=== PATIENT | male | born 1990 | race Caucasian/White ===

== ENCOUNTER 2017-11-08 15:23 | Emergency (ER) | payer SELFPAY ==
--- NOTE | 2017-11-08 15:42 | PDOC ---
Rapid Medical Evaluation Time Seen by Provider: 11/08/17 15:33 Medical Evaluation: 11/08/17 15:40 I have performed a brief in-person evaluation of this patient. 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 Asymptomatic at this time Pertinent physical exam findings:tick embedded to posterior aspect of proximal R leg I have ordered the following:nothing The patient will proceed to the ED for further evaluation.
[2017-11-08 15:47] VITALS: BP 138/86; PULSE 86; TEMP 97.6; BMI 28.2
--- NOTE | 2017-11-08 16:07 | PDOC ---
History of Present Illness - General Chief Complaint: Bite Stated Complaint: TICK ON LEG Time Seen by Provider: 11/08/17 15:33 History Source: Patient Exam Limitations: No Limitations - History of Present Illness Initial Comments: 11/08/17 16:07 27 yr male with no PMHX. presents with tic to the back of his leg noticed today. Pt went hiking yesterday. Severity: Yes: mild Respiratory Risk Factors: reports: insect bite Past History - Past Medical History Allergies/Adverse Reactions: Allergies Allergy/AdvReac Type Severity Reaction Status Date / Time diphenhydramine AdvReac Verified 11/08/17 15:43 [From Benadryl] Home Medications: Ambulatory Orders NK [No Known Home Medication] 11/08/17 COPD: No DVT: No - Immunization History Immunization Up to Date: Yes - Suicide/Smoking/Psychosocial Hx Smoking History: Never smoked Have you smoked in the past 12 months: No Information on smoking cessation initiated: No Hx Alcohol Use: No Drug/Substance Use Hx: No Substance Use Type: None *Physical Exam - Vital Signs Last Vital Signs Temp Pulse Resp BP Pulse Ox 97.6 F 86 16 138/86 99 11/08/17 15:44 11/08/17 15:44 11/08/17 15:44 11/08/17 15:44 11/08/17 15:44 - Physical Exam General Appearance: Yes: Nourished, Appropriately Dressed HEENT: positive: EOMI, RODOLFO Extremity: positive: Normal Capillary Refill, Normal Inspection, Normal Range of Motion Integumentary: positive: Normal Color, Dry, Warm, Other (tick to right posterior calf) Neurologic: positive: Fully Oriented, Alert, Normal Mood/Affect, Normal Response , Motor Strength 5/5 Procedures - Additional Procedures Progress: 11/08/17 16:11 tick removed with forcep tweezers no complications Medical Decision Making - Medical Decision Making 11/08/17 16:18 cc: tick to back of leg will remove tick in ED tick was still alive when removed, less than 24hrs pt does not meet criteria to have prophylactic antibiotics. *DC/Admit/Observation/Transfer Diagnosis at time of Disposition: Tick bite Qualifiers: Encounter type: initial encounter Qualified Code(s): W57.XXXA - Bitten or stung by nonvenomous insect and other nonvenomous arthropods, initial encounter - Discharge Dispostion Disposition: HOME Condition at time of disposition: Good - Referrals - Patient Instructions Additional Instructions: keep areas clean and dry make sure you wear long pants and shirts, tuck pants into your socks remove all your clothing shoes and socks before you go inside your home if you can follow with your doctor for any concerns - Post Discharge Activity
== END 2017-11-08 16:32 | disposition home or self-care (01) ==
LOC: JERFT 15:23
DX: S80.861A Insect bite (nonvenomous), right lower leg, initial encounter (principal); X58.XXXA Exposure to other specified factors, initial encounter; Y93.89 Activity, other specified; Y92.9 Unspecified place or not applicable
CPT/HCPCS: 99281-25